=== PATIENT | male | born 1970 | race Caucasian/White ===

== ENCOUNTER 2016-07-10 11:10 | Emergency (ER) | payer SELFPAY ==
[~2016-07-10 11:10] MED LIST: CELEXA DPS20 MG PO; DESYREL-DPS50 MG PO; THERAPEUTIC MUL1 TAB PO
--- NOTE | 2016-07-21 14:39 | ER ---
ADMIT: 07/10/2016 RM/LOC: ER [facility] MR#: [id number] [facility] [address] [place] [id number] NATY MANZO [address] [place] [address] Emergency Room Report SEX: M AGE: 46 : 1970 DATE: 07/10/2016 ADDENDUM: CHIEF COMPLAINT: Left thigh and right elbow pain. HISTORY OF PRESENT ILLNESS: This is a 46-year-old, who says that he sleep walks and then he fell in the middle of the night around 3:00 or 4:00 a.m. around the wood stove. He has an ecchymosis and abrasion to the right elbow, left toe, and left thigh. X-rays were done of his right elbow and left femur, it is negative for any fractures. CLINICAL IMPRESSION: Contusion to right elbow and left thigh. Abrasion to toes. DISPOSITION: Stable at discharge. I told him to ice, use ibuprofen and Tylenol for pain. Follow up as needed. DIEGO Rutledge / Sridhar Ling MD / naty JOB #: [id number] CC: Ismael Gonzalez MD, Attending Physician UNKNOWN, Family Physician
== END 2016-07-10 13:22 | disposition home or self-care (01) ==
LOC: ER 11:10
DX: S50.01XA Contusion of right elbow, initial encounter (principal); S70.12XA Contusion of left thigh, initial encounter; S90.415A Abrasion, left lesser toe(s), initial encounter; F32.9 Major depressive disorder, single episode, unspecified; F41.9 Anxiety disorder, unspecified; F17.210 Nicotine dependence, cigarettes, uncomplicated; Z88.0 Allergy status to penicillin; Z88.8 Allergy status to other drugs, medicaments and biological substances; Z79.899 Other long term (current) drug therapy; W18.30XA Fall on same level, unspecified, initial encounter; Y92.009 Unspecified place in unspecified non-institutional (private) residence as the place of occurrence of the external cause